=== PATIENT | male | born 1985 | race Caucasian/White ===

== ENCOUNTER 2018-05-03 22:34 | Emergency (ER) | payer MEDICAID ==
[~2018-05-03] VITALS: Ht 182.9 cm; Wt 71.7 kg
[2018-05-03] MEDS ORDERED: HYDROcodone/APAP 5/325 TABLET ONE (23:07)
[2018-05-03] MEDS ORDERED: HYDROcodone/APAP 5/325 TABLET PO ONE (23:30)
[2018-05-03 23:53] VITALS: BP 127/73
== END 2018-05-04 00:03 | disposition home or self-care (01) ==
LOC: ED 23:58
DX: S90.32XA Contusion of left foot, initial encounter (principal); F17.210 Nicotine dependence, cigarettes, uncomplicated; X58.XXXA Exposure to other specified factors, initial encounter; Y93.89 Activity, other specified; Y92.410 Unspecified street and highway as the place of occurrence of the external cause; Y99.8 Other external cause status
CPT/HCPCS: 99283